=== PATIENT | female | born 2000 | race Hispanic/Latino ===

== ENCOUNTER → 2020-06-11 | Outpatient (CLI) | payer OTHER ==
[~2020-06-11] MED LIST: ALBU2TAB PO; HYDR-3468 PO; PREN1TAB59 PO
== END | disposition home or self-care (01) ==
LOC: LAB 14:23
PROVIDERS: ATTEND Obstetrics & Gynecology
DX: Z13.79 Encounter for other screening for genetic and chromosomal anomalies (principal)
CPT/HCPCS: 36415

== ENCOUNTER → 2020-06-11 | Outpatient (CLI) | payer OTHER | END | disposition home or self-care (01) | LOC: RT 10:42 | PROVIDERS: ATTEND Internal Medicine Interventional Cardiology | DX: R00.0 Tachycardia, unspecified (principal) | CPT/HCPCS: 93306 ==

== ENCOUNTER 2020-06-12 02:34 | Emergency (ER) | payer BC, OTHER ==
[~2020-06-12] VITALS: Ht 157.5 cm; Wt 70.3 kg
--- NOTE | 2020-06-12 02:35 | NUR ---
ARRIVAL PT PRESENTS TO ER C/O LOWER PELVIC/ABDOMINAL PAIN, 16 WEEKS WITH TWINS. SEEN BY PHARMACY SCHEDULER TODAY FOR REGULAR VISIT. 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 PT STATES HURTS MORE TO WALK, RELIEVED WITH REST. PT WEARING CARDIAC MONITORING DEVICE FOR 7 DAYS R/T INDUCED HYPERTHYROIDISM. HEART TONES OBTAINED 158 AND 138. PT PLACED ON MONITOR, VITALS OBTAINED AND WNL. ERP NOTIFIED.
[2020-06-12 02:49] VITALS: BP 123/47
--- NOTE | 2020-06-12 02:58 | NUR ---
US CALLED, SPOKE WITH MORIAH.
--- NOTE | 2020-06-12 03:01 | ER.PDOC ---
General Chief Complaint: less 20 wks Stated Complaint: LOWER ABD PAIN Time seen by MD: 02:59 Source: patient Exam Limitations: no limitations History of Present Illness Initial Comments Lower abdominal cramps for about 2 hours. Cramps come and go. No vaginal bleeding. No fever or chills. Timing/Duration: this morning Severity/Quality: moderate, cramping Location of Pain: abdominal pain LMP (females 10-50): : 1 Para: 0 Test: clinic Care: clinic Associated Symptoms: abdominal pain Allergies: Coded Allergies: No Known Allergies (Unverified , 01/19/13) Home Meds Active Scripts Hydrocodone Bit/Acetaminophen (NORCO 5-325 TABLET) 5-325 Ta1 Ea Tablet, 1 EA PO Q6HR PRN for PAIN MODERATE for 30 Days, #30 TABLET 0 Refills Prov:CANDICE VERA MD 08/17/17 Reported Medications Vits W-Ca,Fe,Fa(<1MG) ( VITAMINS) 1 Each Tablet, 1 EACH PO DAILY24, TABLET 05/02/17 Past Medical History Medical History: no pertinent history Surgical History: no surgical history Family History Significant Family History: no pertinent family hx Social History Alcohol Use: none Drug Use: none Review of Systems Constitutional: no symptoms reported EENTM: no symptoms reported Respiratory: no symptoms reported Cardiovascular: no symptoms reported Gastrointestinal: see HPI Genitourinary: no symptoms reported All Other Systems: Reviewed and Negative Physical Exam General Appearance: No Apparent Distress, WD/WN EENT: eyes nml inspection, nml ENT inspection, pharynx nml Neck: nml inspection, non-tender Cardiovascular/Respiratory: Regular Rate, Rhythm, No M/R/G, Normal Peripheral Pulses, No JVD, Normal Breath Sounds, No Respiratory Distress Abdomen: Normal Bowel Sounds, Non Tender, Soft, No Organomegaly, No Pulsatile Mass, Other (gravid uterus) Extremities: Normal Range of Motion, Non-Tender, Normal Inspection, No Pedal Edema, No Calf Tenderness, Normal Capillary Refill Neurologic/Psychiatric: highballer II-XII NML as Tested, No Motor/Sensory Deficits, Alert, Normal Mood/Affect, Oriented x 3 Skin: Normal Color, Warm/Dry Lymphatic: No Adenopathy Results/Orders Results/Orders Orders - ADI JONES MD Cbc With Auto Diff (06/12/20 02:57) Comprehensive Metabolic Panel (06/12/20 02:57) PT (06/12/20 02:57) Partial Thromboplastin Time. (06/12/20 02:57) Urinalysis (06/12/20 02:57) Hcg, Quantitative (06/12/20 02:57) Us Preg Multi Gestation >14 Wk (06/12/20 02:57) Vital Signs Date Time Temp Pulse Resp B/P (MAP) Pulse Ox O2 Delivery O2 Flow Rate FiO2 06/12/20 06:54 73 110/52 (71) 99 Room Air 06/12/20 05:30 98.2 68 16 111/54 (73) 100 Room Air 06/12/20 04:30 70 16 123/79 (94) 100 Room Air 06/12/20 03:30 72 16 128/63 (84) 100 Room Air 06/12/20 02:49 98.1 83 16 123/47 (72) 100 Room Air 06/12/20 02:49 98.4 83 16 06/12/20 02:49 98.1 83 16 100 Laboratory Tests Test 06/12/20 03:00 06/12/20 03:10 White Blood Count 11.5 10^3/uL (4.5-11.0) H Red Blood Count 4.14 10^6/uL (4.00-5.20) Hemoglobin 11.4 g/dL (12.0-15.0) L Hematocrit 32.7 % (36.0-46.0) L Mean Corpuscular Volume 79.0 fL (78-100) Mean Corpuscular Hemoglobin 27.5 pg (26-34) Mean Corpuscular Hemoglobin Concent 34.9 g/dL (33-36.5) Red Cell Distribution Width 13.4 % (11.5-14.5) Platelet Count 318 10^3/uL (150-400) Mean Platelet Volume 9.1 fL (7.8-11.0) Neutrophils (%) (Auto) 67.1 % (41.0-85.0) Lymphocytes (%) (Auto) 25.2 % (24.0-44.0) Monocytes (%) (Auto) 4.7 % (5.0-12.0) L Neutrophils # (Auto) 7.7 10^3/uL (1.8-7.7) Lymphocytes # (Auto) 2.91 10^3/uL1 (1.0-4.8) Monocytes # (Auto) 0.5 10^3/uL (0.3-0.8) Absolute Immature Granulocyte (auto 0.03 10^3 u/L (0-2) Absolute Eosinophils (auto) 0.3 10^3/uL (0.0-0.2) H Immature Granulocytes % 0.30 % (0.00-0.50) Eosinophils % 2.5 % (0.0-5.0) Basophils % 0.2 % (0.0-0.2) Basophils # 0.0 10^3/uL (0.0-0.1) Prothrombin Time 9.8 SEC (9.3-11.3) Prothrombin Time INR (Non-Therap) 1.0 Activated Partial Thromboplast Time 23.8 SEC (24.67-30.72) Sodium Level 139 mmol/L (132-145) Potassium Level 3.4 mmol/L (3.6-5.2) L Chloride Level 106.0 mmol/L (96-109) Carbon Dioxide Level 22.7 mmol/L (20.0-32) Anion Gap 13.7 Blood Urea Nitrogen 7 mg/dL (7-18) Creatinine 0.57 mg/dL (0.59-1.40) L Estimated GFR () 162.0 (>/=60) Est GFR (CKD-EPI)(Non-Afr Angolan) 133.9 (>/=60) BUN/Creatinine Ratio 12.0 Glucose Level 91 mg/dL (70-110) Calcium Level 8.6 mg/dL (8.4-10.5) Total Bilirubin 0.4 mg/dL (0.2-1.0) Aspartate Amino Transferase (AST) 11 U/L (0-35) Alanine Aminotransferase (ALT) 17 U/L (12-78) Alkaline Phosphatase 33 U/L (50-136) L Total Protein 6.6 g/dL (6.4-8.2) Albumin 2.7 g/dL (3.4-5.0) L Globulin 3.9 Albumin/Globulin Ratio 0.692 Human Chorionic Gonadotropin, Quant 12663 mIU/mL Urine Collection Type CCMS Urine Color YELLOW (YELLOW) Urine Appearance TURBID (CLEAR) H Urine Bilirubin NEGATIVE (NEGATIVE) Urine Ketones NEGATIVE (NEGATIVE) Urine Specific [place] 1.025 (1.005-1.035) Urine pH 7.0 (5.0-6.0) Urine Protein NEGATIVE (NEGATIVE) Urine Urobilinogen 0.2 E.U./dL (NEGATIVE) Urine Nitrate NEGATIVE (NEGATIVE) Urine Leukocyte Esterase NEGATIVE (NEGATIVE) Urine Glucose (Auto)(UA) NEGATIVE (NEGATIVE) Urine Blood NEGATIVE (NEGATIVE) Progress Progress Ultrasound report shows concordant live monochorionic diamniotic twin with appropriate interval growth. Gestational age is 16 weeks and [address] Eddy who saw patient in the office yesterday. She recommended that patient be discharged home and to use heating pad, Tylenol, drink fluids and rest. She will follow-up with her as needed. Discussed findings with patient and she voiced understanding. She told me that her pain has eased up, she is down to a 2 and she feels okay to go home. ER DEPART Departure Time of Disposition: 07:16 Disposition: 01 HOME, SELF-CARE Impression: Primary Impression: Abdominal pain during in second trimester Condition: Improved Referrals: SHAWNA EDDY DO (PCP) PRIMARY CARE PROVIDER Additional Instructions: Tylenol Push fluids at home Bed rest Follow-up with your OB doctor next week Return to ED if worsening pain or concerns. Duration or Time Spent with Pa: 60 min ADI JONES MD Jun 12, 2020 03:01
--- NOTE | 2020-06-12 03:07 | NUR ---
URINE SAMPLE PATIENT AMBUATED TO RESTROOM TO PROVIDE URINE SAMPLE ORDERED. ASSISTED WITH GOWN FOR ULTRASOUND EXAM.
[2020-06-12 03:10] LABS: BASOPHIL % 0.2 % (0.0-0.2); EOSINOPHIL # 0.3 10^3/uL (0.0-0.2); EOSINOPHIL % 2.5 % (0.0-5.0); LYMPHOCYTES # 2.91 10^3/uL1 (1.0-4.8); LYMPHOCYTES % 25.2 % (24.0-44.0); MEAN CORP HGB 27.5 pg (26-34); MONOCYTES # 0.5 10^3/uL (0.3-0.8); MONOCYTES % 4.7 % (5.0-12.0); NEUTROPHIL # 7.7 10^3/uL (1.8-7.7); NEUTROPHILS % 67.1 % (41.0-85.0); PLATELET COUNT 318 10^3/uL (150-400); RED CELL DISTRIBUTION WIDTH 13.4 % (11.5-14.5)
[2020-06-12 03:29] LABS: UA COLOR YELLOW (YELLOW)
--- NOTE | 2020-06-12 03:29 | NUR ---
US PRESENT TO TAKE PATIENT TO US PER ORDERS.
[2020-06-12 03:30] VITALS: BP 128/63
[2020-06-12 03:30] LABS: BILIRUBIN,URINE NEGATIVE (NEGATIVE); UROBILINOGEN,URINE 0.2 E.U./dL (NEGATIVE)
[2020-06-12 04:10] LABS: CALCIUM 8.6 mg/dL (8.4-10.5); CARBON DIOXIDE 22.7 mmol/L (20.0-32)
[2020-06-12 04:30] VITALS: BP 123/79
--- NOTE | 2020-06-12 04:36 | NUR ---
PT BACK FROM US, NAD NOTED. PT PLACED ON MONITOR, VITALS OBTAINED.
[2020-06-12 05:30] VITALS: BP 111/54
--- NOTE | 2020-06-12 05:58 | NUR ---
PT RESTING, VITALS WNL, NO DISTRESS NOTED. PENDING US REPORT, PT/FAMILY AWARE OF LOS.
--- NOTE | 2020-06-12 06:29 | NUR ---
PATIENT UPDATE UPDATED PATIENT AND PATIENT FAMILY MEMBER ON PENDING US RESULTS. WATER PROVIDED TO PATIENT FOR COMFORT. DENIES ANY ADDITIONAL NEEDS OR CONCERNS.
[2020-06-12 06:54] VITALS: BP 110/52
== END 2020-06-12 07:25 | disposition home or self-care (01) ==
LOC: ER 02:34
DX: O26.892 Other specified pregnancy related conditions, second trimester (principal); R10.2 Pelvic and perineal pain; Z3A.16 16 weeks gestation of pregnancy
CPT/HCPCS: 36415; 76805; 76810; 80053; 81003; 84702; 85025; 85610; 85730; 99285

== ENCOUNTER → 2020-06-22 | Outpatient (CLI) | payer OTHER | END | disposition home or self-care (01) | LOC: LAB 16:21 | PROVIDERS: ATTEND Obstetrics & Gynecology | DX: E05.90 Thyrotoxicosis, unspecified without thyrotoxic crisis or storm (principal) | CPT/HCPCS: 36415; 84439; 84443 ==